=== PATIENT | male | born 1965 | race Caucasian/White ===

== ENCOUNTER → 2016-12-21 | Outpatient (CLI) | payer BC ==
--- NOTE | 2016-12-21 10:08 | DIAGNOSTIC IMAGING REPORT ---
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 FINDINGS: The pancreas appears sonographically normal. The spleen is enlarged measuring 20.5 cm. No focal splenic masses are visualized. The liver demonstrates a heterogeneous echotexture without evidence of focal mass. The liver is mildly enlarged. There is low volume ascites. No gallstones are visualized. There is mild gallbladder wall thickening but this may be secondary to hepatocellular disease. The right kidney measures 13.1 cm in length. The left kidney measures 13.6 cm in length. No focal renal masses are visualized. There is no hydronephrosis. No abnormality IVC or aorta are visualized. IMPRESSION: 1. Heterogeneous hepatic echotexture without evidence of focal mass. Mild hepatomegaly. 2. Splenomegaly (20.5 cm) 3. Trace ascites. Electronically signed by: Jose Green M.D. 12/21/2016 10:06 AM Dictated Date/Time: 12/21/2016 10:03 AM
== END | disposition home or self-care (01) ==
LOC: C.ULTR 09:22
PROVIDERS: ATTEND Internal Medicine Hematology & Oncology
DX: D69.6 Thrombocytopenia, unspecified (principal)

== ENCOUNTER 2017-08-09 12:11 | Inpatient (IN) | payer BC, OTHER ==
[~2017-08-09] VITALS: Ht 177.8 cm; Wt 127.0 kg
--- NOTE | 2017-08-09 13:21 | DIAGNOSTIC IMAGING REPORT ---
CHEST ONE VIEW PORTABLE CLINICAL HISTORY: 51 years-old Male presenting with EVALUATE RESPIRATORY DISTRESS.DYSPNEA. TECHNIQUE: Portable upright AP view of the chest was obtained. COMPARISON: None. FINDINGS: Atherosclerosis of aortic arch. Cardiac silhouette enlarged. Mildly low lung volumes with hypoventilatory changes. No focal opacity. No large effusion or pneumothorax. Osseous structures normal. Upper abdomen normal. IMPRESSION: 1. Mildly low lung volumes with hypoventilatory changes. Otherwise no evidence of acute cardiopulmonary disease. Electronically signed by: Johnny Pérez M.D. 08/09/2017 1:19 PM Dictated Date/Time: 08/09/2017 1:18 PM
[2017-08-09 13:39] LABS: BASO % 1.4 %; BASO ABS # 0.05 K/uL (0-0.2); EOS % 4.1 %; EOS ABS # 0.15 K/uL (0-0.5); HEMOGLOBIN 11.6 g/dL (14.0-18.0); LYMPH % 28.3 %; LYMPH ABS # 1.04 K/uL (1.2-3.4); MEAN CELL VOLUME 101.7 fL (80-100); MEAN CORPUSCULAR HEMOGLOBIN 32.8 pg (25-34); MEAN CORPUSCULAR HGB CONC 32.2 g/dl (32-36); MEAN PLATELET VOLUME 10.2 fL (7.4-10.4); MONO % 8.4 %; MONO ABS # 0.31 K/uL (0.11-0.59); NEUT % 57.8 %; NEUT ABS # 2.12 K/uL (1.4-6.5); PLATELET COUNT 129 K/uL (130-400); RED CELL DISTRIBUTION WIDTH CV 13.2 % (11.5-14.5); RED CELL DISTRIBUTION WIDTH SD 49.5 fL (36.4-46.3); WHITE BLOOD COUNT 3.67 K/uL (4.8-10.8)
[2017-08-09 13:50] LABS: INR 1.1 (0.9-1.1); PTT PATIENT 29.4 SECONDS (21.0-31.0)
[2017-08-09] MEDS ORDERED: AMLO-114 PO (13:54)
[2017-08-09] MEDS ORDERED: GLC500 PO (13:54)
[2017-08-09] MEDS ORDERED: LSX40 PO (13:54)
[2017-08-09] MEDS ORDERED: LABE100T23 PO (13:54)
[2017-08-09] MEDS ORDERED: MAGN400T6 PO (13:54)
[2017-08-09] MEDS ORDERED: LOSA1TAB38 PO (13:54)
[2017-08-09] MEDS ORDERED: MELO-83 PO (13:54)
[2017-08-09] MEDS ORDERED: FOLI1TAB8 PO (13:54)
[2017-08-09] MEDS ORDERED: SIMV10TA2 PO (13:54)
[2017-08-09] MEDS ORDERED: CLON1INJ2 PO (13:54)
[2017-08-09 13:59] LABS: ALBUMIN 2.4 gm/dl (3.4-5.0); ALT/SGPT 31 U/L (12-78); AST/SGOT 38 U/L (15-37); BLOOD UREA NITROGEN 16 mg/dl (7-18); CALCIUM 8.7 mg/dl (8.5-10.1); CARBON DIOXIDE 29 mmol/L (21-32); CREATININE 1.68 mg/dl (0.60-1.40); GLUCOSE 107 mg/dl (70-99); LIPASE 161 U/L (73-393); POTASSIUM 3.9 mmol/L (3.5-5.1); SODIUM 137 mmol/L (136-145)
[2017-08-09 14:18] LABS: ALKALINE PHOSPHATASE 130 U/L (45-117); TOTAL PROTEIN 8.1 gm/dl (6.4-8.2)
[2017-08-09] MEDS ORDERED: FUROSEMIDE 40 MG/4 ML VIAL IV STA (14:26)
--- NOTE | 2017-08-09 14:39 | EMERGENCY ROOM VISIT NOTE ---
History Report prepared by Grayson: Dustin Louie Under the Supervision of: Dr. Bertrand Tripp M.D. First contact with patient: 12:38 Chief Complaint: RESPIRATORY PROBLEMS Stated Complaint: FLUID BUILD UP, CANT BREATHE GOOD Nursing Triage Summary: pt reports swelling to abd and bilat legs "for months." pt reports he has had shortness of breath since . pt reports hx of cirrohsis of liver. pt reports diarrhea for 2.5 months. "i also am having trouble urinating." abd firm and distended . pt displays audible wheezing. History of Present Illness The patient is a 51 year old white male with a past medical history of diabetes , HLD, HTN, and cirrhosis who presents to the ED with a cc of constant generalized fluid retention beginning a few months ago. He believes he is filling up with fluid (~30 pounds in the past three months), specifically in his legs and abdomen. His legs swell during the day, and tend to improve at night. Positive shortness of breath and decreased urinary output. The patient has a history of cirrhosis related to alcohol use. He currently drinks a beer occasionally. He had a stress test three days ago which was negative. Source of History: patient Onset: A few months ago Position: other (generalized) Symptom Intensity: ~30 pound weight gain in the past three months Quality: other (fluid retention) Timing: constant Modifying Factors (Worsening): other (during the day) Modifying Factors (Relieving): other (night time) Associated Symptoms: + SOB, + urinary symptoms (decreased output) Review of Systems See HPI for pertinent positives and negatives. A total of ten systems were reviewed and were otherwise negative. Past Medical & Surgical Medical Problems: (1) Alcoholic cirrhosis (2) Diabetes (3) HLD (hyperlipidemia) (4) HTN (hypertension) Family History No pertinent family history stated. Social History Smoking Status: Current Some Day Smoker Alcohol Use: occasionally Current/Historical Medications Scheduled Amlodipine (Norvasc), 10 MG PO DAILY Clonidine Hcl (Catapres), 1 TAB PO BID Folic Acid (Folvite), 1 MG PO DAILY Furosemide (Furosemide), 40 MG PO BID Labetalol Hcl (Labetalol Hcl), 100 MG PO BID Losartan Potassium (Cozaar), 100 MG PO DAILY Magnesium Oxide (Mag-Ox), 400 MG PO TID Meloxicam (Meloxicam), 15 MG PO DAILY Metformin HCl (Metformin HCl), 500 MG PO BID Simvastatin (Zocor), 10 MG PO QPM Allergies Coded Allergies: No Known Allergies (Unverified , 08/09/17) Physical Exam Vital Signs Date Time Temp Pulse Resp B/P (MAP) Pulse Ox O2 Delivery O2 Flow Rate FiO2 08/09/17 15:15 83 18 146/100 98 Room Air 08/09/17 14:18 108/80 08/09/17 14:11 82 17 98 08/09/17 13:41 85 23 96 08/09/17 13:11 91 18 99 08/09/17 13:02 111/89 08/09/17 12:41 91 21 98 08/09/17 12:36 87 08/09/17 12:30 127/89 08/09/17 12:29 96 Room Air 08/09/17 12:15 36.5 91 22 137/93 99 Room Air Physical Exam GENERAL: Awake, alert, well-appearing, NAD HENT: Normocephalic, atraumatic. EYES: Normal conjunctiva. Sclera non-icteric. PERRL. No anisocoria. NECK: Supple. No nuchal rigidity. FROM. RESPIRATORY: CTAB, no rhonchi, wheezing, crackles CARDIAC: RRR, no MRG ABDOMEN: Soft, NT, BS+. Diffuse abdominal distension. Positive fluid wave. MSK: No chest wall TTP. 4+ bilateral lower extremity pitting edema. NEURO: GCS 15, CN 2-12 intact, moves all 4s on command SKIN: No rash or jaundice noted. Medical Decision & Procedures ER Provider Diagnostic Interpretation: Radiology results as stated below per my review and radiologist interpretation: CHEST ONE VIEW PORTABLE FINDINGS: Atherosclerosis of aortic arch. Cardiac silhouette enlarged. Mildly low lung volumes with hypoventilatory changes. No focal opacity. No large effusion or pneumothorax. Osseous structures normal. Upper abdomen normal. IMPRESSION: 1. Mildly low lung volumes with hypoventilatory changes. Otherwise no evidence of acute cardiopulmonary disease. Electronically signed by: Johnny Pérez M.D. 08/09/2017 1:19 PM Laboratory Results Test 08/09/17 13:30 08/09/17 13:38 RDW Standard Deviation 49.5 fL (36.4-46.3) RDW Coefficient of Variation 13.2 % (11.5-14.5) White Blood Count 3.67 K/uL (4.8-10.8) Red Blood Count 3.54 M/uL (4.7-6.1) Hemoglobin 11.6 g/dL (14.0-18.0) Hematocrit 36.0 % (42-52) Mean Corpuscular Volume 101.7 fL (80-100) Mean Corpuscular Hemoglobin 32.8 pg (25-34) Mean Corpuscular Hemoglobin Concent 32.2 g/dl (32-36) Platelet Count 129 K/uL (130-400) Mean Platelet Volume 10.2 fL (7.4-10.4) Neutrophils (%) (Auto) 57.8 % Lymphocytes (%) (Auto) 28.3 % Monocytes (%) (Auto) 8.4 % Eosinophils (%) (Auto) 4.1 % Basophils (%) (Auto) 1.4 % Neutrophils # (Auto) 2.12 K/uL (1.4-6.5) Lymphocytes # (Auto) 1.04 K/uL (1.2-3.4) Monocytes # (Auto) 0.31 K/uL (0.11-0.59) Eosinophils # (Auto) 0.15 K/uL (0-0.5) Basophils # (Auto) 0.05 K/uL (0-0.2) Immature Granulocyte % (Auto) 0.0 % Immature Granulocyte # (Auto) 0.00 K/uL (0.00-0.02) Prothrombin Time 11.6 SECONDS (9.0-12.0) Prothromb Time International Ratio 1.1 (0.9-1.1) Activated Partial Thromboplast Time 29.4 SECONDS (21.0-31.0) Partial Thromboplastin Ratio 1.1 Est Creatinine Clear Calc Drug Dose 71.6 ml/min Estimated Average Glucose 111 mg/dl Hemoglobin A1c 5.5 % (4.5-5.6) Magnesium Level 1.8 mg/dl (1.8-2.4) Total Bilirubin 0.5 mg/dl (0.2-1) Aspartate Amino Transf (AST/SGOT) 38 U/L (15-37) Alanine Aminotransferase (ALT/SGPT) 31 U/L (12-78) Alkaline Phosphatase 130 U/L (45-117) Total Creatine Kinase 42 U/L (39-308) Troponin I < 0.015 ng/ml (0-0.045) Pro-B-Type Natriuretic Peptide 265 pg/ml (0-900) Total Protein 8.1 gm/dl (6.4-8.2) Albumin 2.4 gm/dl (3.4-5.0) Globulin 5.7 gm/dl (2.5-4.0) Albumin/Globulin Ratio 0.4 (0.9-2) Lipase 161 U/L (73-393) Hepatitis C Antibody Screen NEG (NEG) Laboratory results reviewed by me Medications Administered Medications (Trade) Dose Ordered Sig/Miah Route Start Time Stop Time Status Last Admin Dose Admin Furosemide (Lasix Inj) 40 mg NOW STAT IV 08/09/17 14:26 08/09/17 14:27 DC 08/09/17 14:32 40 MG Spironolactone (Aldactone Tab) 50 mg 1530 ONCE PO 08/09/17 15:30 08/09/17 16:28 DC 08/09/17 18:58 50 MG ECG Per My Interpretation Indication: SOB/dyspnea Rate (beats per minute): 88 Rhythm: normal sinus Findings: T-wave inversion (lead 3. ), other (Normal intervals. Normal axis. ) ED Course 1248: The patient was evaluated in room A10. A complete history and physical exam was performed. 1435: Upon reexamination, the patient was resting comfortably. I discussed the test results and treatment plan with him. The patient will be evaluated for further management. Medical Decision Nursing notes reviewed. Ancillary studies and prior records reviewed. The patient is a 51 year old white male with a past medical history of diabetes , HLD, HTN, and cirrhosis who presents to the ED with a cc of constant generalized fluid retention beginning a few months ago. Differential diagnosis: Etiologies such as infections, reactive airway disease, pneumonia, pneumothorax , COPD, CHF, cardiac ischemia, pulmonary embolism, musculoskeletal, gastrointestinal, as well as others were entertained. Patient was seen and evaluated the bedside. Patient does have multiple medical comorbidities and does have a history of alcoholic cirrhosis. Patient is presenting as he has worsening shortness of breath and difficulty with walking. Patient is noted approximately 30 pound weight gain in 3 months. Patient does have a history of alcohol cirrhosis. Patient has not had a paracentesis prior. Patient is a very distended abdomen. It is not soft. Patient does have 3-4+ pitting edema bilateral lower extremities. Patient did have blood work completed along with chest x-ray BMP, troponin, EKG. Patient's BNP is not elevated chest x-ray is fairly clear. Less likely heart failure. Patient does have abnormalities in his liver function tests. Patient's troponin is not detectable. EKG nonischemic. Less likely ACS or CHF. Lasix 40 IV given. Given that the patient has had difficulty with breathing and that he has had significant weight gain and an impressive exam I did speak with the on-call hospitalist who agreed to further evaluate and treat the patient as I thought he would benefit from this and a possible therapeutic paracentesis. Medication Reconcilliation Current Medication List: was personally reviewed by me Blood Pressure Screening Patient's blood pressure: Normal blood pressure Blood pressure disposition: Did not require urgent referral Consults Time Called: 1428 Consulting Physician: Dr. Kinjal GRIMM Hospitalist Returned Call: [phone] Discussed the patient's case. The patient will be evaluated for further treatment and disposition. Impression Primary Impression: Alcoholic cirrhosis Additional Impressions: Ascites Abdominal distension Anemia Scribe Attestation The scribe's documentation has been prepared under my direction and personally reviewed by me in its entirety. I confirm that the note above accurately reflects all work, treatment, procedures, and medical decision making performed by me. Departure Information Dispostion Being Evaluated By Hospitalist Referrals Leland Bailey D.O. (PCP) Patient Instructions My [facility] Problem Qualifiers Primary Impression: Alcoholic cirrhosis Ascites presence: with ascites Qualified Codes: K70.31 - Alcoholic cirrhosis of liver with ascites Additional Impressions: Ascites Ascites type: due to alcoholic cirrhosis Qualified Codes: K70.31 - Alcoholic cirrhosis of liver with ascites Anemia Anemia type: unspecified type Qualified Codes: D64.9 - Anemia, unspecified
[2017-08-09] MEDS ORDERED: CARBOHYDRATES FOR HYPOGLYCEMIA PO PRN ×2 (15:30→16:15)
[2017-08-09] MEDS ORDERED: ACETAMINOPHEN 325 MG TAB PO PRN (15:30)
[2017-08-09] MEDS ORDERED: DEXTROSE 50% 50 ML SYR IV PRN ×2 (15:30→16:15)
[2017-08-09] MEDS ORDERED: ONDANSETRON INJ 2 MG/ML 2 ML VIAL IV PRN (15:30)
[2017-08-09] MEDS ORDERED: GLUCOSE 40% GEL 15 GM TUBE PO PRN ×2 (15:30→16:15)
[2017-08-09] MEDS ORDERED: POLYETHYLENE (MIRALAX) 17 GM PACK PO PRN (15:30)
[2017-08-09] MEDS ORDERED: GLUCOSE 10 TABS/TUBE PO PRN ×2 (15:30→16:15)
[2017-08-09] MEDS ORDERED: MAGNESIUM HYDROXIDE SUSP 30 ML UDC PO PRN (15:30)
[2017-08-09] MEDS ORDERED: ALUMINUM/MAGNESIUM/SIMETH (MAALOX MAX) 30 ML UDC PO PRN (15:30)
[2017-08-09] MEDS ORDERED: GLUCAGON FOR INJ 1 MG VIAL SQ PRN (15:30)
[2017-08-09] MEDS ORDERED: SPIRONOLACTONE 25 MG TAB PO ONE (15:30)
[2017-08-09] MEDS ORDERED: CLON0.1T12 PO (15:53)
--- NOTE | 2017-08-09 16:12 | History and Physical ---
History & Physical Date & Time of Service: August 09, 2017 at 15:55 Chief Complaint: Fluid Build Up, Cant Breathe Good Primary Care Physician: No Doctor, Assigned History of Present Illness Source: patient, hospital records This is a 51 y/o male with a history of HTN, HLD, DM II, alcoholic cirrhosis and GERD who presented to the ED on 08/09 with abdomen and leg swelling, weight gain, and dyspnea. The patient states that he has had progressive swelling in his legs and abdomen for the last several months. He also notes progressive shortness of breath and dyspnea on exertion. The patient notes intermittent wheezing at times. He notes roughly a 30 pound weight gain in the last 3 months or so. He reports intermittent dull abdominal pain brought on by laying down in certain positions but denies any pain currently. He notes that he has had decreased urinary output for the last several months. He was recently started on Lasix by his vegetable farm worker about 1 week ago. He notes he had good urinary output the first day only, and then the Lasix didn't seem to help anymore. The patient does have a history of alcoholic cirrhosis. He states he stopped drinking liquor about 2 months ago. He does still have an occasional beer with dinner. The patient denies fevers, chills, sweats, chest pain, palpitations, claudication, cough, nausea, vomiting, abdominal pain, dysuria, hematuria, urinary retention, paralysis, weakness, numbness and tingling. Past Medical/Surgical History Medical Problems: (1) Diabetes (2) HLD (hyperlipidemia) (3) HTN (hypertension) Alcoholic cirrhosis GERD Family History Colon cancer Diabetes mellitus Hypertension Myocardial infarction at age less than 60 Social History Smoking Status: Current Every Day Smoker (few cigarettes/day) Smokeless Tobacco Use: Yes (2 cans/day) Alcohol Use: occasionally (beer, former heavy daily liquor use) Drug Use: none Marital Status: Housing status: lives with significant other Occupational Status: employed Allergies Coded Allergies: No Known Allergies (Unverified , 08/09/17) Home Medications Scheduled Amlodipine (Norvasc), 10 MG PO DAILY Clonidine Hcl (Catapres), 1 TAB PO BID Folic Acid (Folvite), 1 MG PO DAILY Furosemide (Furosemide), 40 MG PO BID Labetalol Hcl (Labetalol Hcl), 100 MG PO BID Losartan Potassium (Cozaar), 100 MG PO DAILY Magnesium Oxide (Mag-Ox), 400 MG PO TID Meloxicam (Meloxicam), 15 MG PO DAILY Metformin HCl (Metformin HCl), 500 MG PO BID Simvastatin (Zocor), 10 MG PO QPM Review of Systems Constitutional: No fever, No chills, No sweats Eyes: No worsening of vision, No eye pain, No diplopia ENT: No hearing loss, No nasal symptoms, No trouble swallowing Respiratory: +SOB, RASCON, intermittent wheezing. No cough Cardiovascular: No chest pain, No claudication, No palpitations Abdomen: +Occasional dull abdominal pain. Swelling from legs up to abdomen. No nausea, No vomiting Musculoskeletal: +B/l lower extremity swelling. No joint pain, No muscle pain Genitourinary - Male: +Decreased urinary output. No dysuria, No urinary retention, No hematuria Neurologic: No paralysis, No weakness, No numbness/tingling Integumentary: No rash, No itch, No color change Physical Exam Vital Signs Date Time Temp Pulse Resp B/P (MAP) Pulse Ox O2 Delivery O2 Flow Rate FiO2 08/09/17 15:15 83 18 146/100 98 Room Air 08/09/17 14:18 108/80 08/09/17 14:11 82 17 98 08/09/17 13:41 85 23 96 08/09/17 13:11 91 18 99 08/09/17 13:02 111/89 08/09/17 12:41 91 21 98 08/09/17 12:36 87 08/09/17 12:30 127/89 08/09/17 12:29 96 Room Air 08/09/17 12:15 36.5 91 22 137/93 99 Room Air General appearance: +Morbidly obese. Well-developed, well-nourished, no apparent distress Head: Normocephalic, atraumatic Eyes: Normal inspection, PERRL, EOMI ENT: Normal ENT inspection, hearing grossly normal, pharynx normal Neck: Supple, no JVD, trachea midline Respiratory/Chest: +Decreased breath sounds throughout. Lungs clear to auscultation, normal breath sounds, no respiratory distress Cardiovascular: Regular rate & rhythm, no gallop, no murmur Abdomen/GI: +Very distended and firm with fluid wave. Non-tender Extremities/Musculoskeletal: +3+ pitting edema from ankles up to abdomen. Normal inspection, no calf tenderness Neurological/Psych: Alert, normal mood/affect, oriented x 3 Skin: Normal color, warm/dry, no rash Diagnostics Laboratory Results Results Past 24 Hours Test 08/09/17 13:30 Range/Units White Blood Count 3.67 4.8-10.8 K/uL Red Blood Count 3.54 4.7-6.1 M/uL Hemoglobin 11.6 14.0-18.0 g/dL Hematocrit 36.0 42-52 % Mean Corpuscular Volume 101.7 80-100 fL Mean Corpuscular Hemoglobin 32.8 25-34 pg Mean Corpuscular Hemoglobin Concent 32.2 32-36 g/dl Platelet Count 129 130-400 K/uL Mean Platelet Volume 10.2 7.4-10.4 fL Neutrophils (%) (Auto) 57.8 % Lymphocytes (%) (Auto) 28.3 % Monocytes (%) (Auto) 8.4 % Eosinophils (%) (Auto) 4.1 % Basophils (%) (Auto) 1.4 % Neutrophils # (Auto) 2.12 1.4-6.5 K/uL Lymphocytes # (Auto) 1.04 1.2-3.4 K/uL Monocytes # (Auto) 0.31 0.11-0.59 K/uL Eosinophils # (Auto) 0.15 0-0.5 K/uL Basophils # (Auto) 0.05 0-0.2 K/uL RDW Standard Deviation 49.5 36.4-46.3 fL RDW Coefficient of Variation 13.2 11.5-14.5 % Immature Granulocyte % (Auto) 0.0 % Immature Granulocyte # (Auto) 0.00 0.00-0.02 K/uL Prothrombin Time 11.6 9.0-12.0 SECONDS Prothromb Time International Ratio 1.1 0.9-1.1 Activated Partial Thromboplast Time 29.4 21.0-31.0 SECONDS Partial Thromboplastin Ratio 1.1 Sodium Level 137 136-145 mmol/L Potassium Level 3.9 3.5-5.1 mmol/L Chloride Level 102 98-107 mmol/L Carbon Dioxide Level 29 21-32 mmol/L Anion Gap 6.0 3-11 mmol/L Blood Urea Nitrogen 16 7-18 mg/dl Creatinine 1.68 0.60-1.40 mg/dl Est Creatinine Clear Calc Drug Dose 71.6 ml/min Estimated GFR () 53.3 Estimated GFR (Non- 46.0 BUN/Creatinine Ratio 9.6 10-20 Random Glucose 107 70-99 mg/dl Calcium Level 8.7 8.5-10.1 mg/dl Magnesium Level 1.8 1.8-2.4 mg/dl Total Bilirubin 0.5 0.2-1 mg/dl Aspartate Amino Transf (AST/SGOT) 38 15-37 U/L Alanine Aminotransferase (ALT/SGPT) 31 12-78 U/L Alkaline Phosphatase 130 45-117 U/L Total Creatine Kinase 42 39-308 U/L Troponin I < 0.015 0-0.045 ng/ml Pro-B-Type Natriuretic Peptide 265 0-900 pg/ml Total Protein 8.1 6.4-8.2 gm/dl Albumin 2.4 3.4-5.0 gm/dl Globulin 5.7 2.5-4.0 gm/dl Albumin/Globulin Ratio 0.4 0.9-2 Lipase 161 73-393 U/L Diagnostic Radiology Reviewed the following studies and agree with interpretation as follows: CHEST ONE VIEW PORTABLE CLINICAL HISTORY: 51 years-old Male presenting with EVALUATE RESPIRATORY DISTRESS.DYSPNEA. TECHNIQUE: Portable upright AP view of the chest was obtained. COMPARISON: None. FINDINGS: Atherosclerosis of aortic arch. Cardiac silhouette enlarged. Mildly low lung volumes with hypoventilatory changes. No focal opacity. No large effusion or pneumothorax. Osseous structures normal. Upper abdomen normal. IMPRESSION: 1. Mildly low lung volumes with hypoventilatory changes. Otherwise no evidence of acute cardiopulmonary disease. EKG Reviewed EKG and agree with interpretation as follows: 88 bpm, NSR Impression Assessment and Plan 51 y/o male with a history of HTN, HLD, DM II, alcoholic cirrhosis and GERD who presented to the ED on 08/09 with abdomen and leg swelling, weight gain, and dyspnea. Pt afebrile, VSS on arrival. CXR negative for congestive changes. EKG no ischemic changes. Pt received 1 dose Lasix 40 mg IV x 1 in ED with good urinary output. Ascites, alcoholic cirrhosis -Admit to telemetry -NPO after midnight for ultrasound guided paracentesis tomorrow. Both diagnostic and therapeutic, ascitic fluid studies ordered -Consult GI, appreciate recs -Lasix 40 mg IV BID -Spironolactone 50 mg PO qd -Monitor I's & O's, daily weights -Echocardiogram ordered -Fluid restriction 2000 mL -Low sodium diet Possible GUDELIA?--unknown baseline -Creatinine 1.68 on admission -Hold losartan for now and Mobic for now -Renal function may improve with diuresis HTN, HLD--stable -Continue Norvasc 10 mg PO qd, clonidine 0.1 mg PO BID, labetalol 100 mg PO BID , Zocor 10 mg PO qd -Hold losartan as above DM II -Hold metformin -Insulin sliding scale -Check BSGs q ac and qhs -Check HgbA1c DVT prophylaxis -Heparin 5000 units SC q12h -RAMON Hoover Code Status -Level I, FULL RESUSCITATION STATUS Resuscitation Status VTE Prophylaxis Will order VTE Prophylaxis: Yes
[2017-08-09] MEDS ORDERED: GLUCAGON FOR INJ 1 MG VIAL IM PRN (16:15)
[2017-08-09 16:16] VITALS: O2SAT 99; Ht 177.8 cm; Wt 127.0 kg
[2017-08-09 19:41] VITALS: BP 117/81; PULSE 88; TEMP 36.5; O2SAT 98
[2017-08-09 20:09] VITALS: O2SAT 98
[2017-08-09] MEDS: HEPARIN SOD 5000 UNIT/0.5 ML CARP SQ SCH (21:00)
[2017-08-09] MEDS: INSULIN ASPART 100 UNITS/ML 3 ML PEN SC SCH (21:00)
[2017-08-09] MEDS: MAGNESIUM OXIDE 400 MG TAB PO SCH (21:25)
[2017-08-09] MEDS: SIMVASTATIN 10 MG TAB PO SCH (21:27)
[2017-08-09] MEDS: LABETALOL HCL 100 MG TAB PO SCH (21:27)
[2017-08-09] MEDS: FUROSEMIDE INJ 40 MG in SYRINGE 0 ML IV SCH (21:27)
[2017-08-09] MEDS: CLONIDINE HCL 0.1 MG TAB PO SCH (21:28)
[2017-08-09] MEDS ORDERED: MoRPHine SULFATE 4 MG/ML 1 ML CARP\\VIAL IM PRN (22:15)
[2017-08-09] MEDS ORDERED: MoRPHine SULFATE 4 MG/ML 1 ML CARP\\VIAL IV PRN (23:45)
[2017-08-09] MEDS ORDERED: NURSING VERBAL MED ORDER ONE (23:45)
[2017-08-10] VITALS (12 sets, daily range): BP systolic 105–135; BP diastolic 69–98; PULSE 72–95; TEMP 36.2–36.8; O2SAT 92–98
[2017-08-10 06:07] LABS: HEMOGLOBIN A1C 5.5 % (4.5-5.6)
[2017-08-10] MEDS: INSULIN ASPART 100 UNITS/ML 3 ML PEN SC SCH ×6 (06:30→21:00)
[2017-08-10 07:07] LABS: HEMATOCRIT 34.7 % (42-52); HEMOGLOBIN 11.3 g/dL (14.0-18.0); MEAN CELL VOLUME 101.8 fL (80-100); MEAN CORPUSCULAR HEMOGLOBIN 33.1 pg (25-34); MEAN CORPUSCULAR HGB CONC 32.6 g/dl (32-36); MEAN PLATELET VOLUME 10.4 fL (7.4-10.4); PLATELET COUNT 127 K/uL (130-400); RED CELL DISTRIBUTION WIDTH CV 13.4 % (11.5-14.5); RED CELL DISTRIBUTION WIDTH SD 49.9 fL (36.4-46.3); WHITE BLOOD COUNT 3.62 K/uL (4.8-10.8)
[2017-08-10 07:37] LABS: CALCIUM 9.1 mg/dl (8.5-10.1); CREATININE 1.91 mg/dl (0.60-1.40); POTASSIUM 3.7 mmol/L (3.5-5.1)
[2017-08-10] MEDS: HEPARIN SOD 5000 UNIT/0.5 ML CARP SQ SCH ×2 (09:00→21:00)
[2017-08-10] MEDS ORDERED: SPIRONOLACTONE 25 MG TAB PO SCH (09:00)
--- NOTE | 2017-08-10 10:07 | DIAGNOSTIC IMAGING REPORT ---
ULTRASOUND GUIDED DIAGNOSTIC AND THERAPEUTIC PARACENTESIS CLINICAL HISTORY: ascites COMPARISON STUDY: No previous studies for comparison. PROCEDURE: The risks, benefits, and alternatives to the procedure were discussed with the patient including the risk of bleeding, infection and injury to adjacent structures. The patient agreed to the procedure and informed written consent was obtained. Following real-time ultrasound localization, the skin of the left lower quadrant was prepped and draped. Following local anesthesia with Xylocaine, the sheath paracentesis needle was inserted and approximately 4 liters of straw-colored fluid was removed by vacuum suction. 1 L of ascites was sent to the laboratory for analysis. The patient tolerated the procedure well and no immediate complications were evident. IMPRESSION: Ultrasound-guided paracentesis with removal of 4 liters of ascites. 1 L of ascites sent to laboratory for analysis. Electronically signed by: Julio Woodard M.D. 08/10/2017 10:06 AM Dictated Date/Time: 08/10/2017 10:04 AM
[2017-08-10] MEDS: FUROSEMIDE INJ 40 MG in SYRINGE 0 ML IV SCH ×2 (10:29→17:17)
[2017-08-10] MEDS: AMLODIPINE BESYLATE 5 MG TAB PO SCH (10:30)
[2017-08-10] MEDS: LABETALOL HCL 100 MG TAB PO SCH ×2 (10:31→21:03)
[2017-08-10] MEDS: MAGNESIUM OXIDE 400 MG TAB PO SCH ×3 (10:31→21:03)
[2017-08-10] MEDS: CLONIDINE HCL 0.1 MG TAB PO SCH ×2 (10:32→21:03)
--- NOTE | 2017-08-10 11:18 | Hospitalist Progress Note ---
Hospitalist Progress Note Date of Service August 10, 2017. Subjective Pt evaluation today including: conversation w/ patient, physical exam, chart review, lab review, review of studies, review of inpatient medication list Patient seen and evaluated. No acute events overnight. Diuresed for a negative balance of 1 L. Pulled 4 L with paracentesis and patient states they think they can pull more tomorrow. Reports feeling a lot better. Breathing is better but not baseline. B/L Lower extremities remain with 3+ pitting edema and very tight. Constitutional: No fever, No chills Respiratory: + shortness of breath (resolving), No cough Cardiovascular: No chest pain Abdomen: No pain, No nausea, No vomiting, No diarrhea, No constipation Musculoskeletal: + swelling (progressive - abdomen and lower extremities), + problem reported (b/l lower extremity discomfort due to swelling) Male : No dysuria Heme: No abnormal bleeding/bruising Medications Current Inpatient Medications Medications (Trade) Dose Ordered Sig/Miah Route Start Time Stop Time Status Last Admin Dose Admin Heparin Sodium (Porcine) (Heparin Sq 5000 Unit/0.5ml) 5,000 unit Q12 SQ 08/09/17 21:00 09/08/17 20:59 Acetaminophen (Tylenol Tab) 650 mg Q4H PRN PO 08/09/17 15:30 09/08/17 15:29 Al Hydrox/Mg Hydrox/Simethicone (Maalox Max Susp) 15 ml Q4H PRN PO 08/09/17 15:30 09/08/17 15:29 Magnesium Hydroxide (Milk Of Magnesia Susp) 30 ml Q12H PRN PO 08/09/17 15:30 09/08/17 15:29 Ondansetron HCl (Zofran Inj) 4 mg Q6H PRN IV 08/09/17 15:30 09/08/17 15:29 Polyethylene (Miralax Powder Packet) 17 gm DAILY PRN PO 08/09/17 15:30 09/08/17 15:29 Insulin Aspart (novoLOG ASPART) SLIDING SCALE G... ACHS SC 08/09/17 21:00 09/08/17 20:59 08/10/17 10:39 4 UNITS Furosemide 40 mg/ Syringe 4 ml @ 4 mls/min BID17 IV 08/09/17 21:00 09/08/17 20:59 08/10/17 10:29 4 MLS/MIN Spironolactone (Aldactone Tab) 50 mg QAM PO 08/10/17 09:00 09/09/17 08:59 Amlodipine Besylate (Norvasc Tab) 10 mg DAILY PO 08/10/17 09:00 09/09/17 08:59 08/10/17 10:30 10 MG Folic Acid (Folvite Tab) 1 mg DAILY PO 08/10/17 09:00 09/09/17 08:59 08/10/17 10:31 1 MG Labetalol HCl (Normodyne Tab) 100 mg BID PO 08/09/17 21:00 09/08/17 20:59 08/10/17 10:31 100 MG Magnesium Oxide (Mag-Ox Tab) 400 mg TID PO 08/09/17 21:00 09/08/17 20:59 08/10/17 10:31 400 MG Simvastatin (Zocor Tab) 10 mg QPM PO 08/09/17 21:00 09/08/17 20:59 08/09/17 21:27 10 MG Clonidine HCl (Catapres Tab) 0.1 mg BID PO 08/09/17 21:00 09/08/17 20:59 08/10/17 10:32 0.1 MG Glucose (Glucose 40% Gel) 15-30 GRAMS 15 GRAMS... UD PRN PO 08/09/17 16:15 09/08/17 16:14 Glucose (Glucose Chew Tab) 4-8 Tablets 4 Tabl... UD PRN PO 08/09/17 16:15 09/08/17 16:14 Dextrose (Dextrose 50% 50ML Syringe) 25-50ML 25ML FOR ... UD PRN IV 08/09/17 16:15 09/08/17 16:14 Glucagon (Glucagon Inj) 1 mg UD PRN IM 08/09/17 16:15 09/08/17 16:14 Carbohydrates (Carbohydrates For Hypoglycemia) 15-30 GRAMS 15 grams... PRN PRN PO 08/09/17 16:15 09/08/17 16:14 Morphine Sulfate (MoRPHine SULFATE INJ) 4 mg Q4H PRN IV 08/09/17 23:45 08/23/17 23:44 08/09/17 23:58 4 MG Objective Vital Signs Date Time Temp Pulse Resp B/P (MAP) Pulse Ox O2 Delivery O2 Flow Rate FiO2 08/10/17 10:35 36.2 80 20 128/78 (95) 98 Room Air 08/10/17 10:05 36.8 72 20 127/81 (96) 98 Room Air 08/10/17 07:31 36.4 79 16 135/98 (110) 92 Room Air 08/10/17 04:30 Room Air 08/10/17 04:25 36.7 95 16 105/71 (82) 97 Room Air 08/10/17 00:30 Room Air 08/10/17 00:00 36.8 89 16 118/72 (87) 93 Room Air 08/09/17 20:09 98 Room Air 08/09/17 19:41 36.5 88 20 117/81 (93) 98 Room Air 08/09/17 16:25 81 20 135/91 99 Room Air 08/09/17 16:16 99 Room Air 08/09/17 15:15 83 18 146/100 98 Room Air 08/09/17 14:18 108/80 08/09/17 14:11 82 17 98 08/09/17 13:41 85 23 96 08/09/17 13:11 91 18 99 08/09/17 13:02 111/89 08/09/17 12:41 91 21 98 08/09/17 12:36 87 08/09/17 12:30 127/89 08/09/17 12:29 96 Room Air 08/09/17 12:15 36.5 91 22 137/93 99 Room Air Physical Exam General Appearance: WD/WN, no apparent distress Eyes: sclerae normal ENT: hearing grossly normal Neck: supple, no JVD, trachea midline Respiratory/Chest: lungs clear, normal breath sounds, no respiratory distress, no accessory muscle use Cardiovascular: regular rate, rhythm, no gallop, no murmur Abdomen: normal bowel sounds, + distended, + pertinent finding (tympanic to percussion; paracentesis site with dressing c/d/i without signs of drainage currently) Extremities: + swelling (3+ pitting edema b/l lower extremities) Neurologic/Psychiatric: alert, oriented x 3 Skin: normal color, warm/dry Laboratory Results Last 24 Hours Test 08/09/17 13:30 08/09/17 13:38 08/09/17 20:34 08/10/17 06:51 White Blood Count 3.67 K/uL 3.62 K/uL Red Blood Count 3.54 M/uL 3.41 M/uL Hemoglobin 11.6 g/dL 11.3 g/dL Hematocrit 36.0 % 34.7 % Mean Corpuscular Volume 101.7 fL 101.8 fL Mean Corpuscular Hemoglobin 32.8 pg 33.1 pg Mean Corpuscular Hemoglobin Concent 32.2 g/dl 32.6 g/dl Platelet Count 129 K/uL 127 K/uL Mean Platelet Volume 10.2 fL 10.4 fL Neutrophils (%) (Auto) 57.8 % Lymphocytes (%) (Auto) 28.3 % Monocytes (%) (Auto) 8.4 % Eosinophils (%) (Auto) 4.1 % Basophils (%) (Auto) 1.4 % Neutrophils # (Auto) 2.12 K/uL Lymphocytes # (Auto) 1.04 K/uL Monocytes # (Auto) 0.31 K/uL Eosinophils # (Auto) 0.15 K/uL Basophils # (Auto) 0.05 K/uL RDW Standard Deviation 49.5 fL 49.9 fL RDW Coefficient of Variation 13.2 % 13.4 % Immature Granulocyte % (Auto) 0.0 % Immature Granulocyte # (Auto) 0.00 K/uL Prothrombin Time 11.6 SECONDS Prothromb Time International Ratio 1.1 Activated Partial Thromboplast Time 29.4 SECONDS Partial Thromboplastin Ratio 1.1 Sodium Level 137 mmol/L 136 mmol/L Potassium Level 3.9 mmol/L 3.7 mmol/L Chloride Level 102 mmol/L 102 mmol/L Carbon Dioxide Level 29 mmol/L 31 mmol/L Anion Gap 6.0 mmol/L 3.0 mmol/L Blood Urea Nitrogen 16 mg/dl 18 mg/dl Creatinine 1.68 mg/dl 1.91 mg/dl Est Creatinine Clear Calc Drug Dose 71.6 ml/min 62.2 ml/min Estimated GFR () 53.3 45.7 Estimated GFR (Non- 46.0 39.4 BUN/Creatinine Ratio 9.6 9.6 Random Glucose 107 mg/dl 100 mg/dl Estimated Average Glucose 111 mg/dl Hemoglobin A1c 5.5 % Calcium Level 8.7 mg/dl 9.1 mg/dl Magnesium Level 1.8 mg/dl Total Bilirubin 0.5 mg/dl Aspartate Amino Transf (AST/SGOT) 38 U/L Alanine Aminotransferase (ALT/SGPT) 31 U/L Alkaline Phosphatase 130 U/L Total Creatine Kinase 42 U/L Troponin I < 0.015 ng/ml Pro-B-Type Natriuretic Peptide 265 pg/ml Total Protein 8.1 gm/dl Albumin 2.4 gm/dl Globulin 5.7 gm/dl Albumin/Globulin Ratio 0.4 Lipase 161 U/L Hepatitis C Antibody Screen NEG Bedside Glucose 107 mg/dl Test 08/10/17 07:31 Bedside Glucose 103 mg/dl Assessment and Plan 51 y/o male with a history of HTN, HLD, DM II, alcoholic cirrhosis and GERD who presented to the ED on 08/09 with abdomen and leg swelling, weight gain, and dyspnea. Pt afebrile, VSS on arrival. CXR negative for congestive changes. EKG no ischemic changes. Pt received 1 dose Lasix 40 mg IV x 1 in ED with good urinary output. Ascites 2/2 Alcoholic Cirrhosis: - Currently diuresed for a negative balance of 1 L with diuretics - paracentesis on 08/10 with 4 L pulled and plans for more tomorrow - Continue Lasix 40 mg Iv BID and Spironolactone 50 mg daily and monitor I&Os - will need to watch kidney function as this did mildly increase on AM labs - Await ascitic fluid analysis - Echo pending - GI consulted - appreciate recommendations -- Patient does see a GI doc in [place] Possible GUDELIA vs CKD? - Limited labs for comparison - Cr trending up but not significantly and will continue to monitor - Losartan on hold HTN: STABLE - Norvasc 10 mg daily (possible contributor to edema?), Labetalol 100 mg BID, and Clonidine 0.1 mg BID; Losartan on hold T2DM: - Metformin on hold; Cover with SSI DVT Prophylaxis: Heparin Code Status: FULL RESUSCITATION Disposition: - Possible further paracentesis tomorrow - PCP is retiring and can supply lists on providers to create continuity of care Continued [facility] stay due to: multiple IV medications needed Discharge planning: home
--- NOTE | 2017-08-10 12:55 | ECHOCARDIOGRAM REPORT ---
*NOTICE TO RECEIVING CONSTITUTION PARTY AGENCY This information is strictly Confidential and protected under [place] law. [place] law prohibits you from making any further disclosure of this information unless further disclosure is expressly permitted by the written consent of the person to whom it pertains or is authorized by law. A general authorization for the release of medical or other information is not sufficient for this purpose. Hospital accepts no responsibility if the information is made available to any other person, INCLUDING THE PATIENT. Interpretation Summary * Name: CAROL GIL Study Date: 08/10/2017 08:07 AM BP: 105/71 mmHg * Patient Location: [facility]\S\[id number] HR: 95 * : 1965 (M/d/yyyy) Gender: Male Height: 70 in * Age: 51 yrs Ethnicity: [place] Weight: 301 lb * Ordering Physician: Tonya Horner * Referring Physician: Self, Referred * Performed By: Leslee Lopez RDCS * * Reason For Study: CHF * BSA: 2.5 m2 * -- Conclusions -- * Left ventricular systolic function is normal. * No regional wall motion abnormalities noted. * Ejection Fraction = 55-60%. * There is borderline concentric left ventricular hypertrophy. * Grade I diastolic dysfunction, (abnormal relaxation pattern). * There is mild tricuspid regurgitation. Procedure Details * A complete two-dimensional transthoracic echocardiogram was performed (2D, M-mode, Doppler and color flow Doppler). Left Ventricle * The left ventricle is normal in size. * There is borderline concentric left ventricular hypertrophy. * Ejection Fraction = 55-60%. * Left ventricular systolic function is normal. * No regional wall motion abnormalities noted. Right Ventricle * The right ventricle is not well visualized. * The right ventricular systolic function is normal as assessed by tricuspid annular plane systolic excursion (TAPSE) (normal >1.5 cm). Atria * The left atrium is mildly dilated. * Borderline right atrial enlargement. * There is no evidence of atrial septal defect, but resolution does not allow assessment for a patent foramen ovale. Mitral Valve * The mitral valve anatomy is normal. * There is no mitral valve stenosis. * Significant mitral regurgitation is absent. Tricuspid Valve * The tricuspid valve is not well visualized, but is grossly normal. * There is no tricuspid stenosis. * There is mild tricuspid regurgitation. * Right ventricular systolic pressure is normal. Aortic Valve * The aortic valve is normal in structure and function. * No hemodynamically significant valvular aortic stenosis. * No aortic regurgitation is present. Pulmonic Valve * The pulmonary valve is not well seen, but the Doppler examination is normal without significant regurgitation or stenosis. Great Vessels * The aortic root is normal size. * The pulmonary is not well visualized. Pericardium/Pleural * There is no pericardial effusion. Great Vessels * Inferior vena cava not well visualized. Left Ventricular Diastolic Function * Grade I diastolic dysfunction, (abnormal relaxation pattern). MMode 2D Measurements and Calculations IVSd 1.2 cm IVSs 1.4 cm LVIDd 5.2 cm LVIDs 3.5 cm LVPWd 1.3 cm LVPWs 1.8 cm IVS/LVPW 0.91 FS 31.9 % EDV(Teich) 130.0 ml ESV(Teich) 52.5 ml EF(Teich) 59.6 % EDV(cubed) 141.4 ml ESV(cubed) 44.6 ml EF(cubed) 68.5 % % IVS thick 19.4 % % LVPW thick 34.1 % LV mass(C)d 267.4 grams LV mass(C)dI 107.7 grams/m\S\2 LV mass(C)s 219.2 grams LV mass(C)sI 88.3 grams/m\S\2 SV(Teich) 77.6 ml SI(Teich) 31.2 ml/m\S\2 SV(cubed) 96.8 ml SI(cubed) 39.0 ml/m\S\2 Ao root diam 2.9 cm Ao root area 6.5 cm\S\2 ACS 1.7 cm LA dimension 4.1 cm LA/Ao 1.4 LVAd ap4 35.2 cm\S\2 LVLd ap4 8.9 cm EDV(MOD-sp4) 116.9 ml EDV(sp4-el) 118.8 ml LVAs ap4 21.4 cm\S\2 LVLs ap4 7.4 cm ESV(MOD-sp4) 52.3 ml ESV(sp4-el) 52.5 ml EF(MOD-sp4) 55.2 % EF(sp4-el) 55.8 % LVAd ap2 27.8 cm\S\2 LVLd ap2 8.1 cm EDV(MOD-sp2) 80.1 ml EDV(sp2-el) 80.6 ml LVAs ap2 17.6 cm\S\2 LVLs ap2 7.0 cm ESV(MOD-sp2) 38.1 ml ESV(sp2-el) 37.5 ml EF(MOD-sp2) 52.4 % EF(sp2-el) 53.5 % LVLd %diff -9.03 % EDV(MOD-bp) 101.3 ml LVLs %diff -5.98 % ESV(MOD-bp) 45.7 ml EF(MOD-bp) 54.8 % SV(MOD-sp4) 64.5 ml SI(MOD-sp4) 26.0 ml/m\S\2 SV(MOD-sp2) 42.0 ml SI(MOD-sp2) 16.9 ml/m\S\2 SV(MOD-bp) 55.5 ml SI(MOD-bp) 22.4 ml/m\S\2 SV(sp4-el) 66.3 ml SI(sp4-el) 26.7 ml/m\S\2 SV(sp2-el) 43.1 ml SI(sp2-el) 17.4 ml/m\S\2 Doppler Measurements and Calculations MV E max elizabeth 65.7 cm/sec MV A max elizabeth 75.1 cm/sec MV E/A 0.87 MV dec time 0.25 sec Ao V2 max 92.9 cm/sec Ao max PG 3.5 mmHg Ao max PG (full) 0.22 mmHg LV V1 max PG 3.2 mmHg LV V1 max 89.8 cm/sec PA V2 max 74.2 cm/sec PA max PG 2.2 mmHg TR max elizabeth 223.6 cm/sec
[2017-08-10] MEDS: SPIRONOLACTONE 25 MG TAB PO SCH (17:17)
[2017-08-10 18:23] LABS: HEP C IGG 13 YRS+OLDER_RFLX NEG (NEG)
[2017-08-10] MEDS: SIMVASTATIN 10 MG TAB PO SCH (21:03)
--- NOTE | 2017-08-10 22:34 | GASTROINTESTINAL CONSULTATION ---
DATE OF CONSULTATION: 08/10/2017 REASON FOR CONSULTATION: Cirrhosis with ascites. HISTORY OF PRESENT ILLNESS: The patient is a 51-year-old who was told he had alcoholic cirrhosis based on imaging a few months ago. Over the last 3 months, the patient has noticed that he has gained about 30 pounds. He thought it was just that he was gaining weight, but he became short of breath and his ankles began to swell so much that he had to cut his socks to be able to get them over his ankles. He ended up coming to the hospital where he was admitted with shortness of breath and a massive amount of ascites. He underwent a paracentesis earlier today for 4 liters both for diagnosis and therapeutics. Fluid was sent for studies. Patient does feel somewhat better, although he still has a lot of ascites remaining. He has never been formally evaluated for his liver disease. He has been started on 40 of Lasix and 50 of Aldactone so far and placed on a fluid and sodium restriction. PAST MEDICAL HISTORY: Remarkable for diabetes, hyperlipidemia, hypertension, consistent with metabolic syndrome. MEDICATIONS: Norvasc, Catapres, furosemide, labetalol, Cozaar, mag ox, meloxicam, metformin, and Zocor. ALLERGIES: None. SOCIAL HISTORY: The patient is . He is employed. He smokes cigarettes every day, a few cigarettes. Used to drink alcohol heavily, but now is drinking just beer with dinner. FAMILY HISTORY: Positive for colon cancer, diabetes, hypertension, and heart attack in relatives less than 60. REVIEW OF SYSTEMS: Remarkable for abdominal and ankle distention, dyspnea on exertion, and difficulty urinating. PHYSICAL EXAMINATION: GENERAL: Patient is significantly overweight with massive ascites. VITAL SIGNS: Blood pressure is 146/100, pulse 83, respirations 18, room air saturations 98%. ABDOMEN: Markedly distended. I am unable to palpate any internal organs. Also has 3-4+ edema in his ankles. LABORATORY DATA: Shows him to be pancytopenic. INR is 1.1. Creatinine is 1.68, bilirubin is 0.5, AST 38, ALT 31, alk phos 130, lipase 161, albumin is 2.4. IMPRESSION AND PLAN: Patient has probable cirrhosis from alcohol and probably steatohepatitis with decompensation with ascites. He has had some fluid removed today and there is some talk that he may be getting additional fluid removed tomorrow. If that is the case, I would recommend an albumin infusion after fluid is removed from his abdomen to prevent massive fluid shifts. Usually I recommend 6-8 grams of 25% albumin per liter of fluid removed. I plan on increasing his Aldactone to 50 mg twice a day along with 40 mg of Lasix. We will add a multiple vitamin and 400 units of vitamin E for its antioxidant effect. We will check for other potential causes of liver disease with lab tests and will also get an alpha fetoprotein to screen for hepatoma. At some point he will need an upper endoscopy to check for esophageal varices as well as a colonoscopy to screen for colon cancer as he is due now, but his liver is higher priority at this point. We will continue to follow the patient during his hospitalization.
[2017-08-11] VITALS (7 sets, daily range): BP systolic 103–121; BP diastolic 69–83; PULSE 70–80; TEMP 36.3–36.9; O2SAT 92–99
[2017-08-11 07:19] LABS: HEMATOCRIT 35.2 % (42-52); HEMOGLOBIN 11.6 g/dL (14.0-18.0); MEAN CELL VOLUME 99.7 fL (80-100); MEAN CORPUSCULAR HEMOGLOBIN 32.9 pg (25-34); MEAN PLATELET VOLUME 10.9 fL (7.4-10.4); PLATELET COUNT 114 K/uL (130-400); RED CELL DISTRIBUTION WIDTH SD 47.2 fL (36.4-46.3); WHITE BLOOD COUNT 3.93 K/uL (4.8-10.8)
[2017-08-11 07:49] LABS: CALCIUM 8.7 mg/dl (8.5-10.1); CREATININE 1.74 mg/dl (0.60-1.40); POTASSIUM 3.9 mmol/L (3.5-5.1)
[2017-08-11] MEDS: MAGNESIUM OXIDE 400 MG TAB PO SCH ×2 (08:02→13:32)
[2017-08-11] MEDS: FUROSEMIDE INJ 40 MG in SYRINGE 0 ML IV SCH ×2 (08:02→17:06)
[2017-08-11] MEDS: CLONIDINE HCL 0.1 MG TAB PO SCH (08:03)
[2017-08-11] MEDS: AMLODIPINE BESYLATE 5 MG TAB PO SCH (08:03)
[2017-08-11] MEDS: SPIRONOLACTONE 25 MG TAB PO SCH ×2 (08:03→17:03)
[2017-08-11] MEDS: LABETALOL HCL 100 MG TAB PO SCH (08:03)
[2017-08-11] MEDS: HEPARIN SOD 5000 UNIT/0.5 ML CARP SQ SCH (08:08)
[2017-08-11] MEDS: INSULIN ASPART 100 UNITS/ML 3 ML PEN SC SCH ×3 (08:10→17:08)
[2017-08-11] MEDS ORDERED: MULTIVITAMINS W/MINERALS 15ML UDP PO SCH (09:00)
[2017-08-11] MEDS ORDERED: TOCOPHERYL, DL-ALPHA 400 INTER.UNIT CAP PO SCH (09:00)
[2017-08-11] MEDS ORDERED: VTME400 PO (11:31)
[2017-08-11] MEDS ORDERED: SPR25 PO (11:31)
[2017-08-11] MEDS ORDERED: LSX/80 PO (11:31)
--- NOTE | 2017-08-11 11:44 | Discharge Instructions ---
Discharge Instructions Date of Service August 11, 2017. Admission Reason for Admission: Alcoholic Cirrhosis, Ascites Discharge Discharge Diagnosis / Problem: Cirrhosis, suspected due to alcohol, ascites, edema, CKD stage II/III Discharge Goals Goal(s): Decrease discomfort, Improve function, Improve disease control Activity Recommendations Activity Limitations: resume your previous activity . Instructions / Follow-Up Instructions / Follow-Up Medications: - LASIX: increased to 80mg twice a day to keep fluids down - SPIRONOLACTONE: 50mg twice a day, also to keep fluids down - VITAMIN E: added by Dr. Graham for anti-inflammatory effect with liver - LOSARTAN: stopped due to kidney function, also, Lasix and spironolactone have blood pressure effects - METFORMIN: stopped due to renal function, sugars have been stable while here - MOBIC: stop this medication due to renal function - TYLENOL: can use for pain, however, no more than 2000mg a day with your liver disease Cirrhosis: suspected to be due to alcohol abuse hepatitis testing was negative Dr. Graham sent out AFP level which will take a few days to come back Paracentesis performed on 08/10 and 08/11 to remove fluid increased doses of Lasix and Spironolactone to keep fluids under better control essential that you follow up closely with Dr. Graham for management of liver disease, need EGD and colonoscopy echocardiogram was checked, your heart function was normal, no evidence of heart failure Alcohol abuse: as we discussed, you cannot have ANY alcohol being sober means completely sober, not even a beer with dinner if your liver gets worse in the future and you would require a liver transplant, you are not eligible if you have had any alcohol in prior 6 months so, stop drinking completely from this time on FOLLOW UP - Dr. Graham in 2-3 weeks, call for appointment, - new PCP, my nurse navigator will help arrange this appointment, need to get kidney function tested in one week Current Hospital Diet Patient's current hospital diet: Diabetes Type 2 Diet, Low Sodium Diet (2gm Na) Discharge Diet Recommended Diet: Low Sodium Diet (2gm Na), Diabetes Type 2 Diet Procedures Procedures Performed: Paracentesis on 08/10 and 08/11 Pending Studies Studies pending at discharge: no Laboratory Results Hemoglobin A1c Test 08/09/17 13:30 Range/Units Estimated Average Glucose 111 mg/dl Hemoglobin A1c 5.5 4.5-5.6 % Medical Emergencies . Who to Call and When: Medical Emergencies: If at any time you feel your situation is an emergency, please call 911 immediately. . Non-Emergent Contact Non-Emergency issues call your: Primary Care Provider, Disaster Recovery Specialist Call Non-Emergent contact if: you have a fever, you have any medication questions . . "Provider Documentation" section prepared by Santhosh Zambrano. . [place] Drug Monitoring Program Search Results: no issues identified
--- NOTE | 2017-08-11 15:04 | Discharge Summary ---
Discharge Summary Date of Service August 11, 2017. Discharge Summary Admission Date: August 09, 2017 at 15:54 Discharge Date: August 11, 2017 Discharge Disposition: Home Principal Diagnosis: Ascites likely from Alcoholic Cirrhosis Problems/Secondary Diagnoses: Medical Problems: (1) Diabetes (2) HLD (hyperlipidemia) (3) HTN (hypertension) Procedures: CHEST ONE VIEW PORTABLE FINDINGS: Atherosclerosis of aortic arch. Cardiac silhouette enlarged. Mildly low lung volumes with hypoventilatory changes. No focal opacity. No large effusion or pneumothorax. Osseous structures normal. Upper abdomen normal. IMPRESSION: 1. Mildly low lung volumes with hypoventilatory changes. Otherwise no evidence of acute cardiopulmonary disease. ULTRASOUND GUIDED DIAGNOSTIC AND THERAPEUTIC PARACENTESIS PROCEDURE: The risks, benefits, and alternatives to the procedure were discussed with the patient including the risk of bleeding, infection and injury to adjacent structures. The patient agreed to the procedure and informed written consent was obtained. Following real-time ultrasound localization, the skin of the left lower quadrant was prepped and draped. Following local anesthesia with Xylocaine, the sheath paracentesis needle was inserted and approximately 4 liters of straw-colored fluid was removed by vacuum suction. 1 L of ascites was sent to the laboratory for analysis. The patient tolerated the procedure well and no immediate complications were evident. IMPRESSION: Ultrasound-guided paracentesis with removal of 4 liters of ascites. 1 L of ascites sent to laboratory for analysis. ECHOCARDIOGRAM: * -- Conclusions -- * Left ventricular systolic function is normal. * No regional wall motion abnormalities noted. * Ejection Fraction = 55-60%. * There is borderline concentric left ventricular hypertrophy. * Grade I diastolic dysfunction, (abnormal relaxation pattern). * There is mild tricuspid regurgitation. PARACENTESIS UNDER ULTRASOUND GUIDANCE PROCEDURE: The risks, benefits, and alternatives to the procedure were discussed with the patient who voiced understanding. Written informed consent was obtained. Following real-time ultrasound localization of a suitable pocket of fluid in the left lower quadrant, the abdomen was prepped and draped in the usual sterile fashion. The skin and soft tissues were anesthetized with 1% lidocaine. The sheathed paracentesis was inserted and approximately 6 liters of straw-colored ascitic fluid was removed by vacuum suction. The procedure was well tolerated and without immediate complication. The patient left the department in satisfactory condition. IMPRESSION: Successful ultrasound-guided paracentesis with removal of approximately 6 liters of ascitic fluid. Consultations: 1. Gastroenterology Medication Reconciliation New Medications: Furosemide (Lasix) 80 Mg Tab 1 TAB PO BID for 30 Days, #60 TAB 3 Refills Spironolactone (Spironolactone) 25 Mg Tab 50 MG PO BID17, #120 TAB 4 Refills Tocopheryl Acet,Dl-Alpha (Vitamin E/Dl-Alpha) 400 Unit Cap 400 INTERUNIT PO QAM, #30 CAP 3 Refills Continued Medications: Amlodipine (Norvasc) 10 Mg Tab 10 MG PO DAILY Clonidine Hcl (Catapres) 0.1 Mg Tab 1 TAB PO BID for 90 Days, #180 TAB 1 Refill Folic Acid (Folvite) 1 Mg Tab 1 MG PO DAILY Labetalol Hcl (Labetalol Hcl) 100 Mg Tab 100 MG PO BID Magnesium Oxide (Mag-Ox) 400 Mg Tab 400 MG PO TID Simvastatin (Zocor) 10 Mg Tab 10 MG PO QPM Discontinued Medications: Furosemide (Furosemide) 40 Mg Tab 40 MG PO BID Losartan Potassium (Cozaar) 100 Mg Tab 100 MG PO DAILY Meloxicam (Meloxicam) 15 Mg Tab 15 MG PO DAILY Metformin HCl (Metformin HCl) 500 Mg Tab 500 MG PO BID Discharge Exam ROS Constitutional: No fever, No chills Respiratory: + shortness of breath (resolving), No cough Cardiovascular: No chest pain Abdomen: No pain, No nausea, No vomiting, No diarrhea, No constipation Musculoskeletal: + swelling (progressive - abdomen and lower extremities), + problem reported (b/l lower extremity discomfort due to swelling) Male : No dysuria Heme: No abnormal bleeding/bruising Physical Exam General Appearance: WD/WN, no apparent distress Eyes: sclerae normal ENT: hearing grossly normal Neck: supple, no JVD, trachea midline Respiratory/Chest: lungs clear, normal breath sounds, no respiratory distress, no accessory muscle use Cardiovascular: regular rate, rhythm, no gallop, no murmur Abdomen: normal bowel sounds, + significantly distended, + pertinent finding ( tympanic to percussion; paracentesis site with dressing c/d/i without signs of drainage currently) Extremities: + swelling (3+ pitting edema b/l lower extremities) Neurologic/Psychiatric: alert, oriented x 3 Skin: normal color, warm/dry Hospital Course ADMISSION: This is a 51 y/o male with a history of HTN, HLD, DM II, alcoholic cirrhosis and GERD who presented to the ED on 08/09 with abdomen and leg swelling , weight gain, and dyspnea. The patient states that he has had progressive swelling in his legs and abdomen for the last several months. He also notes progressive shortness of breath and dyspnea on exertion. The patient notes intermittent wheezing at times. He notes roughly a 30 pound weight gain in the last 3 months or so. He reports intermittent dull abdominal pain brought on by laying down in certain positions but denies any pain currently. He notes that he has had decreased urinary output for the last several months. He was recently started on Lasix by his mobile solutions architect about 1 week ago. He notes he had good urinary output the first day only, and then the Lasix didn't seem to help anymore. The patient does have a history of alcoholic cirrhosis. He states he stopped drinking liquor about 2 months ago. He does still have an occasional beer with dinner. The patient denies fevers, chills, sweats, chest pain, palpitations, claudication, cough, nausea, vomiting, abdominal pain, dysuria, hematuria, urinary retention, paralysis, weakness, numbness and tingling. HOSPITAL COURSE: Ascites 2/2 Alcoholic Cirrhosis? vs Other: - Currently diuresed for a negative balance of 4 L with diuretics - paracentesis on 08/10 with 4 L pulled and underwent another paracentesis on 08/11 with an additional 6 L with Albumin infusion after removal -- May need intermittent paracentesis until resolved - D/Cd on Lasix 80 mg BID and Spironolactone 50 mg BID; Vitamin E supplementation - Echo unremarkable for explanation of volume overload - GI consulted - seen by Dr. Graham - recommendations as above - will need F/U as outpatient with him -- Recommendations for F/U EGD to assess for any varices and routine colonoscopy Possible GUDELIA vs CKD? - Limited labs for comparison - Cr trending down and currently at 1.74 and producing adequate urine - Losartan will be D/Cd in favor of diuretics as BP has remained stable HTN: STABLE - Norvasc 10 mg daily (possible contributor to edema?), Labetalol 100 mg BID, and Clonidine 0.1 mg BID; Losartan D/C T2DM: - A1c is actually 5.5 and will D/C Metformin Disposition: - Case management assisting with PCP establishment - F/U with Dr. Graham Total Time Spent: Greater than 30 minutes This includes examination of the patient, discharge planning, medication reconciliation, and communication with other providers. Discharge Instructions Please refer to the electronic Patient Visit Report (Discharge Instructions) for additional information. Additional Copies To Mary Kay Leslie M.D.
--- NOTE | 2017-08-11 15:38 | DIAGNOSTIC IMAGING REPORT ---
PARACENTESIS UNDER ULTRASOUND GUIDANCE CLINICAL HISTORY: Cirrhosis and ascites. PROCEDURE: The risks, benefits, and alternatives to the procedure were discussed with the patient who voiced understanding. Written informed consent was obtained. Following real-time ultrasound localization of a suitable pocket of fluid in the left lower quadrant, the abdomen was prepped and draped in the usual sterile fashion. The skin and soft tissues were anesthetized with 1% lidocaine. The sheathed paracentesis was inserted and approximately 6 liters of straw-colored ascitic fluid was removed by vacuum suction. The procedure was well tolerated and without immediate complication. The patient left the department in satisfactory condition. IMPRESSION: Successful ultrasound-guided paracentesis with removal of approximately 6 liters of ascitic fluid. Electronically signed by: Juan Manuel Monique M.D. 08/11/2017 3:37 PM Dictated Date/Time: 08/11/2017 3:35 PM
[2017-08-11] MEDS: ALBUMIN HUMAN 25% 12.5 GM/50 ML VIAL IV SCH ×4 (16:18→18:37)
[2017-08-12 13:35] LABS: ANA SCREEN TC 249X NEGATIVE (NEGATIVE)
== END 2017-08-11 19:46 | disposition home or self-care (01) | DRG 433 ==
LOC: C.EDB 12:12 → C.MED 15:54 → ENRESERV 16:06
PROVIDERS: ADMIT Hospitalist; ATTEND Internal Medicine
PROC: 0W9G3ZZ Drainage of Peritoneal Cavity, Percutaneous Approach (ICD-10-PCS; principal; 2017-08-10)
DX: K70.31 Alcoholic cirrhosis of liver with ascites (principal); N17.9 Acute kidney failure, unspecified; E11.9 Type 2 diabetes mellitus without complications; E78.5 Hyperlipidemia, unspecified; I11.9 Hypertensive heart disease without heart failure; Z79.84 Long term (current) use of oral hypoglycemic drugs; K21.9 Gastro-esophageal reflux disease without esophagitis; Z83.3 Family history of diabetes mellitus; Z82.49 Family history of ischemic heart disease and other diseases of the circulatory system; F17.200 Nicotine dependence, unspecified, uncomplicated; N18.3 Chronic kidney disease, stage 3 (moderate); E88.81 Metabolic syndrome and other insulin resistance; Z80.0 Family history of malignant neoplasm of digestive organs; F10.20 Alcohol dependence, uncomplicated

== ENCOUNTER 2017-08-13 13:16 | Emergency (ER) | payer OTHER ==
[~2017-08-13] VITALS: Ht 177.8 cm; Wt 127.0 kg
[~2017-08-13 13:16] MED LIST: AMLO-114 PO; CLON0.1T12 PO; FOLI1TAB8 PO; LABE100T23 PO; LSX/80 PO; MAGN400T6 PO; SIMV10TA2 PO; SPR25 PO; VTME400 PO
[2017-08-13 13:20] VITALS: TEMP 36.3; Ht 177.8 cm; Wt 127.0 kg
[2017-08-13 15:15] VITALS: BP 109/72; PULSE 82; O2SAT 98
--- NOTE | 2017-08-13 15:30 | EMERGENCY ROOM VISIT NOTE ---
History Report prepared by [place]ayson: Hedy Holcomb Under the Supervision of: Dr. Leland Ashby M.D. First contact with patient: 13:40 Chief Complaint: OTHER COMPLAINT Stated Complaint: FLUID LEAKING/SURGERY LAST WEEK History of Present Illness The patient is a 51 year old male who presents to the Emergency Room with complaints of persistent abdominal leaking starting 3 days ago. The patient had fluid drained from his abdomen for the first time 3 days ago. He also had fluid drained 2 days ago. He had 10 liters out. When he was discharged home, he still had leaking. He was told that it would stop eventually. He had continued to have clear fluid draining out. He soaked a bath towel in the [address] He denies any abdominal pain, fever, chest pain, or SOB. He feels well otherwise. He has a history of cirrhosis and diabetes. He quit drinking 2 months ago. Source of History: patient Onset: 3 days ago Position: abdomen Quality: other (leaking) Timing: other (persistent) Associated Symptoms: No fevers, No chest pain, No SOB, No abdominal pain Review of Systems See HPI for pertinent positives & negatives. A total of 10 systems reviewed and were otherwise negative. Past Medical & Surgical Medical Problems: (1) Alcoholic cirrhosis (2) Diabetes (3) HLD (hyperlipidemia) (4) HTN (hypertension) Old medical records were reviewed. Nurse's notes were reviewed and I agree with. Family History Colon cancer Diabetes mellitus Hypertension Myocardial infarction at age less than 60 Social History Smoking Status: Current Some Day Smoker Alcohol Use: occasionally Drug Use: none Marital Status: Occupation Status: employed Current/Historical Medications Scheduled Amlodipine (Norvasc), 10 MG PO DAILY Clonidine Hcl (Catapres), 1 TAB PO BID Folic Acid (Folvite), 1 MG PO DAILY Furosemide (Lasix), 1 TAB PO BID Labetalol Hcl (Labetalol Hcl), 100 MG PO BID Magnesium Oxide (Mag-Ox), 400 MG PO TID Simvastatin (Zocor), 10 MG PO QPM Spironolactone (Spironolactone), 50 MG PO BID17 Tocopheryl Acet,Dl-Alpha (Vitamin E/Dl-Alpha), 400 INTERUNIT PO QAM Allergies Coded Allergies: No Known Allergies (Unverified , 08/13/17) Physical Exam Vital Signs Date Time Temp Pulse Resp B/P (MAP) Pulse Ox O2 Delivery O2 Flow Rate FiO2 08/13/17 13:20 36.3 87 22 102/75 99 Room Air Physical Exam General: Non-ill appearing middle age male in no acute distress. HEENT: Normal cephalic atraumatic. Pupils are equal round and reactive to light. Extraocular movements are intact. Oropharynx is pink with moist mucous membranes. No swelling of the mouth lips or tongue. Neck: Supple with a midline trachea. No meningeal signs or stiffness, no JVD or bruits. No Stridor. Chest: Clear to auscultation bilaterally. No wheezes or rhonchi. No increased work of breathing. Heart: regular rate and rhythm. Abdomen: Soft nontender, small hole in his left lower abdomen that has a small leak of clear fluid, no redness or warmth. Extremities: No cyanosis clubbing or edema. No calf tenderness or assymetry Spine/Back. Non tender to palpation. No CVA tenderness Skin: Good turgor without rashes. Neurologic exam: Cranial nerves two through 12 are intact. Motor and sensation are intact and symmetrical throughout. Medical Decision & Procedures ED Course 1341: Past medical records reviewed. The patient was evaluated in room C2B, and a complete history and physical examination were performed. 1414: I reevaluated the patient. Site is no longer leaking. 1430: I reevaluated the patient. There is no evidence of leaking. 1500: I reevaluated the patient. There is no leaking. He will try to move now. 1512: Upon reevaluation, the patient has been up walking around with no leakage. I discussed the results and treatment plan with him. He verbalized agreement of the treatment plan. The patient was discharged home. Medical Decision Differentials include, but are not limited to; leaking from paracentesis, liver failure, infection. This patient comes in as described above. he had 2 recent paracentesis and has been leaking from the one site for several days now. He has no other complaints. He says his abdomen has remained nondistended and he feels better. He has had no fever chills or shortness of breath. He has had no pus drainage redness or warmth. He just is concerned that he cannot get it to stop. He has 2 small sites the one has stopped from where he put some glue on it. I had him lay on the right side and with this there was no drainage and this enabled us to keep dry. When it was very dry, I was able to Place Dermabond in several layers. I had him continue laying on the site until it dried and then I had him roll back over he had no further drainage. I had him walk around and we watched him he feels much better. I will discharge him to home. He will return if: recurrence of symptoms, redness or warmth, fever chills, any new problems or concerns. He should follow-up with his regular doctor Tuesday for recheck. Medication Reconcilliation Current Medication List: was personally reviewed by me Blood Pressure Screening Patient's blood pressure: Normal blood pressure Blood pressure disposition: Did not require urgent referral Impression Primary Impression: Fluid collection at surgical site Additional Impressions: Alcoholic cirrhosis leakage s/p paracentesis Scribe Attestation The scribe's documentation has been prepared under my direction and personally reviewed by me in its entirety. I confirm that the note above accurately reflects all work, treatment, procedures, and medical decision making performed by me. Departure Information Dispostion Home / Self-Care Referrals No Doctor, Assigned (PCP) Forms HOME CARE DOCUMENTATION FORM, IMPORTANT VISIT INFORMATION, WORK / SCHOOL INSTRUCTIONS Patient Instructions My [facility] Additional Instructions Rest. Return if any further leakage, fever, redness or warmth, abdominal pain or distention, shortness of breath, any new problems or concerns Follow-up with your doctor on Tuesday for recheck or return to the ER over the if symptoms worsen Problem Qualifiers
== END 2017-08-13 15:25 | disposition home or self-care (01) ==
LOC: C.EDB 13:18 → C.EDC 15:25
DX: L76.82 Other postprocedural complications of skin and subcutaneous tissue (principal); K70.31 Alcoholic cirrhosis of liver with ascites; E11.9 Type 2 diabetes mellitus without complications; E78.5 Hyperlipidemia, unspecified; I10 Essential (primary) hypertension; Z79.899 Other long term (current) drug therapy